=== PATIENT | female | born 1955 | race Caucasian/White ===

== ENCOUNTER 2022-08-11 04:23 | Observation (INO) | payer OTHER ==
[2022-08-11] MEDS ORDERED: NA CHLORIDE 0.9% 1,000 ML ONE (04:51)
[2022-08-11] MEDS ORDERED: NA CHLORIDE 0.9% 500 ML ONE (04:51)
--- NOTE | 2022-08-11 04:56 | ER ---
Nurse's Notes [facility] Name: Idalmis Chand Age: 67 yrs Sex: Female : 1955 Arrival Date: 08/11/2022 Time: 04:25 Bed 4 Private MD: Diagnosis: Paroxysmal atrial fibrillation;Chest pain, unspecified;Vomiting Presentation: 08/11 04:31 Chief complaint: EMS states: pt woke up with rapid heart rate. pt has hx of SVT on as6 arrival of EMS pt was in A-fib with RVR. on arrival to ER pt is in NRS. Coronavirus screen: At this time, the client does not indicate any symptoms associated with coronavirus-19. Ebola Screen: No symptoms or risks identified at this time. Initial Sepsis Screen: Does the patient meet any 2 criteria? No. Patient's initial sepsis screen is negative. Does the patient have a suspected source of infection? No. Patient's initial sepsis screen is negative. Risk Assessment: Do you want to hurt yourself or someone else? Patient reports no desire to harm self or others. Onset of symptoms was August 11, 2022. 04:31 Acuity: EVETTE 3 as6 04:31 Method Of Arrival: EMS: [facility] as6 Historical: - Allergies: 04:34 Propoxyphene HCl; as6 - Home Meds: 04:34 aspirin 81 mg Oral chew 1 tab once daily [Active]; carvedilol 6.25 mg oral tab 1 tab 2 as6 times per day [Active]; - PMHx: 04:34 Hypertension; SVT; as6 - PSHx: 04:34 Appendectomy; Tonsillectomy; Ligation of fallopian tube; Cholecystectomy; foot; as6 - Immunization history:: Client reports receiving the 2nd dose of the Covid vaccine, moderna Flu vaccine is not up to date. - Social history:: Smoking status: Patient reports the use of cigarette tobacco products, smokes one-half pack cigarettes per day. - Family history:: not pertinent. Screenin:35 [facility] ED Fall Risk Assessment (Adult) Score/Fall Risk Level 0 - 2 = Low Risk. Abuse as6 screen: Denies threats or abuse. Denies injuries from another. Nutritional screening: No deficits noted. Tuberculosis screening: No symptoms or risk factors identified. Assessment: 04:30 General: Appears in no apparent distress. Behavior is calm, cooperative. Pain: Denies as6 pain. Neuro: Level of Consciousness is awake, alert, obeys commands, Oriented to person, place, time, situation. Cardiovascular: Denies chest pain, shortness of breath, Capillary refill < 3 seconds Patient's skin is warm and dry. Rhythm is sinus rhythm. Respiratory: Respiratory effort is even, unlabored, Respiratory pattern is regular, symmetrical. 06:00 General: pt ambulating to bathroom. no complaints or concerns at this time. as6 Vital Signs: 04:31 BP 111 / 72; Pulse 69; Resp 14 S; Temp 97.9(O); Pulse Ox 100% on R/A; Weight 58.06 kg as6 (R); Height 5 ft. 3 in. (160.02 cm) (R); Pain 0/10; 05:30 BP 114 / 70; Pulse 64; Resp 16 S; Pulse Ox 96% on R/A; as6 06:30 BP 116 / 72; Pulse 65; Resp 13 S; Pulse Ox 95% on R/A; as6 04:31 Body Mass Index 22.67 (58.06 kg, 160.02 cm) as6 ED Course: 04:25 Patient arrived in ED. as6 04:25 Ryan Wyman, TREVER is Primary Nurse. as6 04:28 Sam Hawkins MD is Attending Physician. vangie 04:33 Triage completed. as6 04:35 Inserted saline lock: 20 gauge in left antecubital area, using aseptic technique. Blood pf1 collected. 04:35 Arm band placed on. as6 04:36 Bed in low position. Call light in reach. Side rails up X2. Adult w/ patient. Client as6 placed on continuous cardiac and pulse oximetry monitoring. NIBP monitoring applied. 04:41 SARS RAPID Sent. pf1 04:41 TSH Sent. pf1 04:41 Basic Metabolic Panel Sent. pf1 04:41 CBC with Diff Sent. pf1 04:41 LFT's Sent. pf1 04:41 Magnesium Sent. pf1 04:41 NT PRO-BNP Sent. pf1 04:41 PT-INR Sent. pf1 04:41 Troponin HS Sent. pf1 04:48 XRAY Chest (1 view) In Process Unspecified. EDMS 04:55 Ángel Earl MD is Hospitalizing Provider. vangie 06:38 No provider procedures requiring assistance completed. Patient admitted, IV remains in as6 place. Administered Medications: 04:54 Drug: NS 0.9% 500 ml Route: IV; Rate: bolus; Site: left antecubital; as6 06:44 Follow up: Response: No adverse reaction; IV Status: Completed infusion; IV Intake: as6 500ml 04:54 Drug: NS 0.9% 1000 ml Route: IV; Rate: 125 ml/hr; Site: left antecubital; as6 06:44 Follow up: Response: No adverse reaction; IV Status: Completed infusion; IV Intake: as6 1000ml 05:03 Drug: Lopressor (metoprolol TARTRATE)) 25 mg Route: PO; as6 06:43 Follow up: Response: No adverse reaction as6 05:03 Drug: Pepcid (famotidine) 20 mg Route: IVP; Site: left antecubital; as6 06:43 Follow up: Response: No adverse reaction as6 05:04 Drug: Aspirin Chewable Tablet 81 mg Route: PO; as6 06:43 Follow up: Response: No adverse reaction as6 05:04 Drug: Lovenox (enoxaparin) 60 mg Route: Sub-Q; Site: left lower abdomen; as6 06:43 Follow up: Response: No adverse reaction as6 Medication: 06:38 VIS not applicable for this client. as6 Intake: 06:44 IV: 1000ml; Total: 1000ml. as6 06:44 IV: 500ml; Total: 1500ml. as6 Outcome: 04:56 Decision to Hospitalize by Provider. vangie 06:38 Admitted to ER Hold. Please see [facility] for further documentation. as6 06:38 Condition: stable 06:38 Instructed on the need for admit. 18:04 Patient left the ED. jl7 Signatures: Dispatcher [employer] EDMS Sam Hawkins MD MD cha Leal, Jahala RN RN jl7 Ryan Wyman RN RN as6 Lesli chacon RN RN pf1
--- NOTE | 2022-08-11 04:56 | EDPHYS ---
Physician Documentation [facility] Name: Idalmis Chand Age: 67 yrs Sex: Female : 1955 Arrival Date: 08/11/2022 Time: 04:25 Bed 4 Private MD: REGINO Physician Sam Hawkins HPI: 08/11 04:40 This 67 yrs old Female presents to ER via EMS with complaints of vangie PALPITATIONS, 160 B/M. 04:40 The patient presents with a history of heart racing. Context: The symptoms occur at vangie rest. Onset: The symptoms/episode began/occurred just prior to arrival. Modifying factors: The symptoms are aggravated by nothing. The symptoms are alleviated by nothing. Severity of symptoms: At their worst the symptoms were mild moderate in the emergency department the symptoms are unchanged. The patient has not experienced similar symptoms in the past. Historical: - Allergies: 04:34 Propoxyphene HCl; as6 - Home Meds: 04:34 aspirin 81 mg Oral chew 1 tab once daily [Active]; carvedilol 6.25 mg oral tab 1 tab 2 as6 times per day [Active]; - PMHx: 04:34 Hypertension; SVT; as6 - PSHx: 04:34 Appendectomy; Tonsillectomy; Ligation of fallopian tube; Cholecystectomy; foot; as6 - Immunization history:: Client reports receiving the 2nd dose of the Covid vaccine, moderna Flu vaccine is not up to date. - Social history:: Smoking status: Patient reports the use of cigarette tobacco products, smokes one-half pack cigarettes per day. - Family history:: not pertinent. ROS: 04:40 Constitutional: Negative for fever, chills, and weight loss, Eyes: Negative for injury, vangie pain, redness, and discharge, ENT: Negative for injury, pain, and discharge, Neck: Negative for injury, pain, and swelling, Respiratory: Negative for shortness of breath, cough, wheezing, and pleuritic chest pain, Abdomen/GI: Negative for abdominal pain, nausea, vomiting, diarrhea, and constipation, Back: Negative for injury and pain, : Negative for injury, bleeding, discharge, and swelling, MS/Extremity: Negative for injury and deformity, Skin: Negative for injury, rash, and discoloration, Neuro: Negative for headache, weakness, numbness, tingling, and seizure, Psych: Negative for depression, anxiety, suicide ideation, homicidal ideation, and hallucinations, Allergy/Immunology: Negative for hives, rash, and allergies, Endocrine: Negative for neck swelling, polydipsia, polyuria, polyphagia, and marked weight changes, Hematologic/Lymphatic: Negative for swollen nodes, abnormal bleeding, and unusual bruising. 04:40 Cardiovascular: Positive for chest pain, palpitations. Exam: 04:40 Constitutional: This is a well developed, well nourished patient who is awake, alert, vangie and in no acute distress. Head/Face: Normocephalic, atraumatic. Eyes: Pupils equal round and reactive to light, extra-ocular motions intact. Lids and lashes normal. Conjunctiva and sclera are non-icteric and not injected. Cornea within normal limits. Periorbital areas with no swelling, redness, or edema. ENT: Nares patent. No nasal discharge, no septal abnormalities noted. Tympanic membranes are normal and external auditory canals are clear. Oropharynx with no redness, swelling, or masses, exudates, or evidence of obstruction, uvula midline. Mucous membranes moist. Neck: Trachea midline, no thyromegaly or masses palpated, and no cervical lymphadenopathy. Supple, full range of motion without nuchal rigidity, or vertebral point tenderness. No Meningismus. Chest/axilla: Normal chest wall appearance and motion. Nontender with no deformity. No lesions are appreciated. Cardiovascular: Regular rate and rhythm with a normal S1 and S2. No gallops, murmurs, or rubs. Normal PMI, no JVD. No pulse deficits. Respiratory: Lungs have equal breath sounds bilaterally, clear to auscultation and percussion. No rales, rhonchi or wheezes noted. No increased work of breathing, no retractions or nasal flaring. Abdomen/GI: Soft, non-tender, with normal bowel sounds. No distension or tympany. No guarding or rebound. No evidence of tenderness throughout. Back: No spinal tenderness. No costovertebral tenderness. Full range of motion. Skin: Warm, dry with normal turgor. Normal color with no rashes, no lesions, and no evidence of cellulitis. MS/ Extremity: Pulses equal, no cyanosis. Neurovascular intact. Full, normal range of motion. Neuro: Awake and alert, GCS 15, oriented to person, place, time, and situation. Cranial nerves II-XII grossly intact. Motor strength 5/5 in all extremities. Sensory grossly intact. Cerebellar exam normal. Normal gait. Psych: Awake, alert, with orientation to person, place and time. Behavior, mood, and affect are within normal limits. 04:40 ECG was reviewed by the Attending Physician. 04:56 Musculoskeletal/extremity: DVT Exam: No signs of deep vein thrombosis. no pain, no vangie swelling, no tenderness, negative Homans' sign noted on exam, no appreciated bluish discoloration, no erythema, no increased warmth. Vital Signs: 04:31 BP 111 / 72; Pulse 69; Resp 14 S; Temp 97.9(O); Pulse Ox 100% on R/A; Weight 58.06 kg as6 (R); Height 5 ft. 3 in. (160.02 cm) (R); Pain 0/10; 05:30 BP 114 / 70; Pulse 64; Resp 16 S; Pulse Ox 96% on R/A; as6 06:30 BP 116 / 72; Pulse 65; Resp 13 S; Pulse Ox 95% on R/A; as6 04:31 Body Mass Index 22.67 (58.06 kg, 160.02 cm) as6 MDM: 04:29 Patient medically screened. vangie 04:45 Differential diagnosis: arrythmia. Data reviewed: vital signs, nurses notes, lab test vangie result(s), EKG, radiologic studies, plain films. Consideration of Admission/Observation Patient was admitted/placed on observation. Escalation of care including admission/observation considered. I considered the following discharge prescriptions or medication management in the emergency department Medications were administered in the Emergency Department. See MAR. Test considered but Not performed: CT: CT CHEST. Care significantly affected by the following chronic conditions: Hypertension, SVT. 08/11 04:27 Order name: Basic Metabolic Panel; Complete Time: 06:12 08/11 04:27 Order name: CBC with Diff; Complete Time: 06:12 08/11 04:27 Order name: LFT's; Complete Time: 06:12 08/11 04:27 Order name: Magnesium; Complete Time: 06:12 08/11 04:27 Order name: NT PRO-BNP; Complete Time: 06:12 08/11 04:27 Order name: PT-INR; Complete Time: 06:12 la08/11 04:27 Order name: Troponin HS; Complete Time: 06:12 la08/11 04:27 Order name: XRAY Chest (1 view) la08/11 04:28 Order name: TSH; Complete Time: 06:12 la08/11 04:28 Order name: UDS la08/11 04:28 Order name: SARS RAPID; Complete Time: 06:12 vangie 08/11 06:14 Order name: Urine Dipstick-Ancillary EDMS 08/11 07:55 Order name: Troponin High Sensitivity EDMS 08/11 04:27 Order name: EKG; Complete Time: 04:29 la08/11 04:27 Order name: Cardiac monitoring; Complete Time: 04:35 la08/11 04:27 Order name: EKG - Nurse/Tech; Complete Time: 04:41 la08/11 04:27 Order name: IV Saline Lock; Complete Time: 04:35 la08/11 04:27 Order name: Labs collected and sent; Complete Time: 04:41 la08/11 04:27 Order name: O2 Per Protocol; Complete Time: 04:35 la08/11 04:27 Order name: O2 Sat Monitoring; Complete Time: 04:35 la08/11 04:28 Order name: Urine Dipstick-Ancillary (obtain specimen); Complete Time: 06:37 la08/11 05:03 Order name: CONS Physician Consult EDMS EC:40 Rate is 71 beats/min. Rhythm is regular. QRS [place] is Normal. NE interval is normal. QRS vangie interval is normal. QT interval is normal. No Q waves. T waves are Normal. No ST changes noted. Clinical impression: Normal ECG and No evidence of ischemia. Interpreted by me. Reviewed by me. Administered Medications: 04:54 Drug: NS 0.9% 500 ml Route: IV; Rate: bolus; Site: left antecubital; as6 06:44 Follow up: Response: No adverse reaction; IV Status: Completed infusion; IV Intake: as6 500ml 04:54 Drug: NS 0.9% 1000 ml Route: IV; Rate: 125 ml/hr; Site: left antecubital; as6 06:44 Follow up: Response: No adverse reaction; IV Status: Completed infusion; IV Intake: as6 1000ml 05:03 Drug: Lopressor (metoprolol TARTRATE)) 25 mg Route: PO; as6 06:43 Follow up: Response: No adverse reaction as6 05:03 Drug: Pepcid (famotidine) 20 mg Route: IVP; Site: left antecubital; as6 06:43 Follow up: Response: No adverse reaction as6 05:04 Drug: Aspirin Chewable Tablet 81 mg Route: PO; as6 06:43 Follow up: Response: No adverse reaction as6 05:04 Drug: Lovenox (enoxaparin) 60 mg Route: Sub-Q; Site: left lower abdomen; as6 06:43 Follow up: Response: No adverse reaction as6 Disposition Summary: 08/11/22 04:56 Hospitalization Ordered Hospitalization Status: Observation vangie Provider: Ángel Earl cha Condition: Fair vangie Problem: new vangie Symptoms: have improved vangie Bed/Room Type: Standard vangie Location: Telemetry/MedSurg (Inpatient)(08/11/22 17:28) sp3 Room Assignment: [facility](08/11/22 17:28) sp3 Diagnosis - Paroxysmal atrial fibrillation vangie - Chest pain, unspecified vangie - Vomiting vangie Forms: - Medication Reconciliation Form vangie - SBAR form vangie Signatures: Dispatcher [employer] EDSam Castillo MD MD cha Attema, Lee, DISTRIBUTION ACCOUNTING CLERK-C DISTRIBUTION ACCOUNTING CLERK-Cla1 Rosa Maria Jansen, RN RN Dashawn Bedoya MD MD sp3 Ryan Wyman RN RN as6 Corrections: (The following items were deleted from the chart) 06:08 04:56 Telemetry/MedSurg (observation) vangie cg 06:08 04:56 vangie cg 17:28 06:08 [facility] ER HOLD cg sp3 17:28 06:08 ERHOLD- cg sp3
[2022-08-11] MEDS ORDERED: ENOXAPARIN 60 MG/0.6 ML SQ ONE ×2 (05:02→12:18)
[2022-08-11] MEDS ORDERED: ASPIRIN 81 MG CHEWABLE TABLET ONE (05:02)
[2022-08-11] MEDS ORDERED: FAMOTIDINE 20 MG/2 ML VIAL IV ONE (05:02)
[2022-08-11] MEDS ORDERED: METOPROLOL TAR 25 MG TAB ONE (05:02)
[2022-08-11 05:07] LABS: Absolute Lymphocytes (CBC) 2.5 K/uL (0.7-4.9); Hematocrit 47.7 % (36.0-45.0); Lymphocytes % 37.5 % (15.3-44.8); MCV 93.4 fL (80-100); MPV 8.1 fL (7.6-11.3); RBC Red Blood Cell Count 5.11 M/uL (3.86-4.86)
[2022-08-11 05:08] LABS: Protime INR 0.82
[2022-08-11 05:35] LABS: SARS-CoV-2 Antigen Rapid Res Negative (Negative)
[2022-08-11] MEDS ORDERED: ACETAMINOPHEN 325 MG TABLET PO PRN (05:38)
[2022-08-11] MEDS ORDERED: ONDANSETRON 4 MG/2 ML VIAL IV PRN (05:38)
[2022-08-11] MEDS ORDERED: MORPHINE 2 MG/ML SYR IV PRN (05:38)
[2022-08-11 05:42] VITALS: BMI 22.3
[2022-08-11 05:48] LABS: ALT/SGPT 26 U/L (13-56); Albumin 4.2 g/dL (3.4-5.0); Alkaline Phosphatase 78 U/L (45-117); BUN Blood Urea Nitrogen 12 mg/dL (7-18); Bicarbonate 28 mmol/L (21-32); Bilirubin Total 0.4 mg/dL (0.2-1.0); Glomerular Filtration Rate 97 ml/min (=/>90); Glucose Level 113 mg/dL (74-106); NT PRO-BNP 38 pg/mL (<125); Sodium Level 140 mmol/L (136-145)
[2022-08-11 05:55] LABS: AST/SGOT 23 U/L (15-37); Bilirubin Direct < 0.1 mg/dL (0-0.2); Magnesium 2.4 mg/dL (1.6-2.4); Potassium 3.6 mmol/L (3.5-5.1)
[2022-08-11 06:14] LABS: Urine Blood 1+ (Negative); Urine Glucose Negative (Negative); Urine Protein Negative (Negative); Urine pH 7.5 (5.0-7.0)
[2022-08-11] MEDS ORDERED: INFLUENZA VACCINE (for 6+ mo) 0.5 ML DOSE IMVAC ONE (08:00)
[2022-08-11] MEDS ORDERED: PNEUMOCOCCAL VACCINE 0.5 ML IMVAC ONE (08:00)
[2022-08-11] MEDS ORDERED: FAMOTIDINE 20 MG/2 ML VIAL IV SCH (09:00)
[2022-08-11] MEDS: ENOXAPARIN 60 MG/0.6 ML SQ SCH ×2 (09:00→22:46)
[2022-08-11] MEDS: carvediloL 6.25 MG TAB PO SCH ×2 (09:00→21:47)
[2022-08-11] MEDS ORDERED: ASPIRIN EC 81 MG TAB PO SCH (09:00)
[2022-08-11] MEDS ORDERED: ASPIRIN EC 81 MG TAB PO ONE (09:03)
[2022-08-11] MEDS ORDERED: carvediloL 6.25 MG TAB ONE (09:03)
[2022-08-11] MEDS ORDERED: FAMOTIDINE 20 MG TAB ONE (09:03)
--- NOTE | 2022-08-11 11:56 | HP ---
Date of Admission: 08/11/2022 Chief Complaint: Palpitation and chest pain. History Of Present Illness: This is a 67-year-old very pleasant female patient, who was doing fine i n her normal usual state of health, has a history of supraventricular tachycardia and she says that s he has this palpitation from her SVT problem from time to time and it may last for just 2-3 seconds a nd has no other symptoms with it. Last night, she stayed up until midnight or so and then went to be d and in the middle of the night, she woke up with some heartburn, indigestion as she had something t o eat just before she went to sleep and heartburn, indigestion problem resolved on its own without ta robert any medications, but subsequently she started to have palpitation and she felt like her heart ra te was really fast around 160-180 and it was irregular and this was different feeling than what she g ets, but she has SVT spell and she started to have low bit chest tightness or pressure type of feelin g in the center of her chest. So, after while she requested her to call ambulance and when [facility] arrived to her house and they placed her on monitor, she was noted to have atrial fibrillation wit h rapid ventricular rate and she was brought into emergency home. As EMT was getting her out of [facility] to bring her inside the emergency room, she told the EMT that she feels like she is back to nor mal as palpitation feeling had just resolved at that time and indeed she did convert back to normal s inus rhythm on her own as she was entering emergency room. After her arrival in ER, she has remained in normal sinus rhythm and has no other symptoms. Medications: She takes carvedilol 6.25 mg 2 times a day and aspirin 81 mg daily. Allergies: TO PROPOXYPHENE. Review of Systems: Cardiovascular: As mentioned above. All other systems reviewed and negative. Past Medical History: Significant for hypertension and SVT. Past Surgical History: Appendectomy, cholecystectomy, tonsillectomy, and tubal ligation. Family History: Father , had COPD and colon cancer. Social History: Positive for smoking about half pack a day and use of alcohol. The patient reports that she has about 4 drinks a couple of times a week. Physical Examination: Vital Signs: Height 5 feet 3 inches, weight 126 pounds, oxygen saturation 96% on room air. Temperat ure , pulse , respiratory rate , blood pressure . General: Awake, alert, oriented, not in distress. HEENT: Head atraumatic, normocephalic. Conjunctivae nonerythematous. Sclerae white. Mouth, no thr ush or edema noted. Ears/Nose, no mass, lesion, discharge noted. Neck: Supple. No JVD, lymph nodes, bruit, thyromegaly noted. Lungs: Bilateral good equal air entry. Clear to auscultation. No rhonchi. No rales. Heart: Normal heart sounds, no murmur or gallop. Abdomen: Soft, bowel sounds normal. No guarding, rigidity, tenderness, mass, hepatosplenomegaly, dis tention, or bruit noted. Extremities: No leg edema. No calf tenderness. Skin: No rash, ulcer, cellulitis. Lymphatics: No lymph node enlargement in neck, supraclavicular, infraclavicular region. Neuro: No focal neurological deficit. Chest: Unremarkable. External Genitalia: Deferred. Rectal: Deferred. Laboratory Data: WBC 6.8, hemoglobin 16.4, platelets 293. Sodium 140, potassium 3.6, chloride 103, bicarb 28, BUN 12, creatinine 0.64, glucose 113. Liver function tests unremarkable. Troponin 11 on the first set, second set 21.6. TSH 3.390. Magnesium 2.4. COVID-19 test negative. Urinalysis, 1+ blood, otherwise negative. Rhythm strip was brought by EMS reviewed. Rhythm strip does show atrial fibrillation with rapid ventricular rate. Impression: 1.Atrial fibrillation with rapid ventricular rate. 2.Smoking. 3.Microscopic hematuria. Plan: We will go ahead and admit the patient to hospital for further evaluation and management of th is problem. The patient will be admitted to telemetry. We will consult Cardiology, get echo with Do ppler today. The patient will be started on Lovenox. We will continue carvedilol and I did talk to her regarding the importance to quit smoking and to avoid alcohol use and she understands that very w ell. I did talk to her regarding staying on oral anticoagulation upon discharge from the hospital an d we also talked about importance of taking appropriate precautions to avoid any kind of injury as sh e will be at increased risk of bleeding complications. DEVAN/MODL Voice ID: [id number]
--- NOTE | 2022-08-11 14:06 | RAD REPORT ---
EXAM DESCRIPTION: Chest Single View CLINICAL HISTORY: 67 years Female new afib, palpitations COMPARISON: None FINDINGS: Lung volumes adequate. Cardiac silhouette is normal. No pneumothorax. No large pleural effusion. No focal consolidation. No acute bony finding. IMPRESSION: No acute cardiopulmonary findings. Electronically signed by: Abigail Gibbs MD 08/11/2022 4:53 AM CASHIER CLERK Due to temporary technical issues with the PACS/Fluency reporting system, reports are being signed by the in house radiologists without review as a courtesy to insure prompt reporting. The interpreting radiologist is fully responsible for the content of the report.
[2022-08-11] MEDS: FAMOTIDINE 20 MG TAB PO SCH (21:47)
[2022-08-12 05:43] LABS: Absolute Lymphocytes (CBC) 3.2 K/uL (0.7-4.9); Hematocrit 40.6 % (36.0-45.0); Lymphocytes % 44.3 % (15.3-44.8); MCV 94.6 fL (80-100); MPV 7.9 fL (7.6-11.3); RBC Red Blood Cell Count 4.29 M/uL (3.86-4.86)
[2022-08-12 06:12] LABS: Potassium 4.1 mmol/L (3.5-5.1)
[2022-08-12 08:41] VITALS: O2SAT 98
[2022-08-12] MEDS: carvediloL 6.25 MG TAB PO SCH (09:00)
[2022-08-12] MEDS: FAMOTIDINE 20 MG TAB PO SCH (09:56)
[2022-08-12] MEDS: ENOXAPARIN 60 MG/0.6 ML SQ SCH (09:56)
[2022-08-12 12:58] VITALS: BP 131/64; TEMP 97.4
--- NOTE | 2022-08-12 18:08 | CON ---
Date of Consultation: 08/11/2022 Reason For Consultation: Chest pain and palpitations. History Of Present Illness: A 67-year-old female, has history of supraventricular tachycardia. She is an active smoker, presented to the emergency room with palpitations and chest pain. Pain is retro sternal, radiates to the left upper extremity, and resolved on its own without taking any medications . Evaluated by bedside. She was in sinus rhythm and chest pain was gone. Past Medical History: As outlined above in HPI. Medications: Refer to reconciliation sheet for detailed list. Allergies: ACETAMINOPHEN AND PROPOXYPHENE. Family History: No premature coronary artery disease or cancer. Past Surgical History: Appendectomy, cholecystectomy, tonsillectomy. Social History: She is an active smoker. Does not drink, use any drugs. Review of Systems: All systems reviewed and they were negative except what mentioned in HPI. Physical Examination: Vital Signs: Reviewed. Head and Neck: Pupils are equal, reactive to light. Intact eye movements. No JVD. No cervical lym phadenopathy. Neck is supple. Thyroid is not enlarged. Lungs: Clear to auscultation bilaterally. No rhonchi, wheezing, or crackles. No accessory muscle u se. Heart: Regular rate and rhythm. No extra sounds. Abdomen: Soft, nontender. Bowel sounds positive. No organomegaly. No masses or hernia. No rigidi ty or rebound. Extremities: No edema, clubbing, or cyanosis. Intact pulses. Skin: No rash. Neurologic: Alert, awake, oriented x3. No acute focal deficits appreciated. Investigations: Cardiac enzymes x2 are negative. BUN is 12, creatinine 0.64. Assessment And Recommendations: 1.Chest pain, risk factors being her age and smoking history. Recommend observation, rule out with serial sets of cardiac enzymes and if enzymes are negative, then we will plan for outpatient stress t est and echocardiogram. 2.Active smoker. The patient was counseled. SR/MODL Voice ID: [id number] Report ID: [id number]
--- NOTE | 2022-08-12 18:53 | PN ---
Date of Progress Note: 08/12/2022 Subjective: Seen by bedside. No further chest pain. Rested well overnight. Her cardiac enzymes ar e negative. Review of Systems: No chest pain, shortness of breath, orthopnea, cough, nausea, vomiting, or diarrhea. All other syste ms reviewed and they were negative. Physical Examination: Vital Signs: Reviewed. Head And Neck: Pupils are equal and reactive to light. Intact eye movements. No JVD. No cervical lymphadenopathy. Neck is supple. Thyroid is not enlarged. Lungs: Clear to auscultation bilaterally. No rhonchi, wheezing, or crackles. No accessory muscle u se. Heart: Regular rate and rhythm. No extra sounds. Abdomen: Soft, nontender. Bowel sounds positive. No organomegaly. No masses or hernia. No rigidi ty or rebound. Extremities: No edema, clubbing, or cyanosis. Intact pulses. Skin: No rash. Neurologic: Alert, awake, and oriented x3. No acute focal deficits appreciated. Lymph Nodes: No cervical or axillary lymphadenopathy. Investigations: Labs were reviewed. Assessment/recommendation: 1.Chest pain. Cardiac enzymes are negative. Has multiple risk factors. The patient can be dischar ged from Cardiology standpoint and we will obtain echo and stress test as an outpatient. I advised h er to take baby aspirin 81 mg daily until the stress test is done. 2.Active smoker. She was counseled against smoking. SR/MODL Voice ID: [id number] Report ID: [id number]
--- NOTE | 2022-08-12 22:08 | DS ---
Date of Discharge: 08/12/2022 Disposition: Discharged to go home. Physical Examination: HEENT: Unremarkable. Lungs: Clear to auscultation. Heart: Sounds normal. Abdomen: Soft. Bowel sounds normal. No guarding, rigidity, tenderness, or distention. Extremities: No leg edema. Laboratory Data: Today white count 7.1, hemoglobin 13.8, and platelet count 252. Sodium 138, potass ium 4.1, chloride 105, bicarb 29, BUN 14, creatinine 0.65, and glucose 113. Cardiac enzymes remain n egative x2. Hospital Course: This is a 67-year-old very pleasant female patient who came into emergency room wit h complaints of chest pain and palpitations. Please see dictated H and P for more information. Afte r the patient was evaluated in the emergency room, she was admitted to the hospital. When EMS arrive d at her house, as soon as she was placed on the monitor, she was noted to have atrial fibrillation w ith rapid ventricular rate and as she was entering the emergency room, her atrial fibrillation proble m resolved spontaneously without any medication given by EMS and she was in sinus rhythm. She has re mained in sinus rhythm throughout the hospital stay. After she was evaluated in the ER, she was admi tted to the hospital. Cardiology consultation was requested. Her UT was ruled out by getting serial cardiac enzymes. Echocardiogram was done today, result pending and the patient was discharged to go home in stable condition. Associate Brand Manager has released her to go home and has recommended outpatient s tress test for her. The patient informed me that she actually already has a scheduled appointment to see mandarin speaking nanny in [place], which is coming up in 2 weeks and she is going to keep that appointment as she tells me and she will get stress testing done with the mandarin speaking nanny in [place], but we will p rovide her with a copy of echocardiogram to take it with her. A copy of the rhythm strip from EMS sh owing atrial fibrillation was given to the patient and she was advised to take this to mandarin speaking nanny. During this hospitalization, the patient was given Lovenox injection and upon discharge, she will go home with Eliquis. The patient was made aware of the risk of bleeding complications with Eliquis an d she was advised to take appropriate precautions and if she has any bleeding problem, then the patie nt is to report to emergency room right away. Discharge Medications And Instructions: 1.Continue carvedilol 6.25 mg 2 times a day. 2.Stop aspirin. 3.Start Eliquis 5 mg 2 times a day and prescription was sent to her pharmacy. 4.Follow up at my office next week. Final Diagnoses: 1.Paroxysmal atrial fibrillation. 2.Hypertension. 3.Supraventricular tachycardia. 4.Smoking. 5.Microscopic hematuria. DEVAN/MODL Voice ID: [id number] Report ID: [id number]
--- NOTE | 2022-08-13 06:57 | ECHO ---
HEIGHT: 5 ft 3 in WEIGHT: 126 lb 0 oz DATE OF STUDY: 08/12/[address]: Sam Hawkins MD 2-DIMENSIONAL: YES M.MODE: YES DOPPLER: NO COLOR FLOW: NO TDS: PORTABLE: DEFINITY: BUBBLE STUDY: DIAGNOSIS: ATRIAL FIBRILLATION CARDIAC HISTORY: CATHERIZATION: SURGERY: PROSTHETIC VALVE: PACEMAKER: MEASUREMENTS (cm) DIASTOLIC (NORMALS) SYSTOLIC (NORMALS) IVSd 1.0 (0.6-1.2) LA Diam 3.1 (1.9-4.0) LVEF 78% LVIDd 4.5 (3.5-5.7) LVIDs 2.4 (2.0-3.5) %FS 46% LVPWd 1.0 (0.6-1.2) Ao Diam 2.6 (2.0-3.7) 2 DIMENSIONAL ASSESSMENT: RIGHT ATRIUM: NORMAL LEFT ATRIUM: NORMAL RIGHT VENTRICLE: NORMAL LEFT VENTRICLE: NORMAL TRICUSPID VALVE: NORMAL MITRAL VALVE: NORMAL PULMONIC VALVE: NORMAL AORTIC VALVE: NORMAL PERICARDIAL EFFUSION: NONE AORTIC ROOT: NORMAL LEFT VENTRICULAR WALL MOTION: NORMAL DOPPLER/COLOR FLOW: NOT DONE COMMENTS: 1. NORMAL LEFT VENTRICULAR EJECTION FRACTION 60-65% 2. NORMAL WALL MOTION 3. NO DOPPLER WAS DONE TO EVALUATE VALVULAR DISEASE TECHNOLOGIST: KENIA TAYLOR
== END 2022-08-12 14:45 | disposition home or self-care (01) ==
LOC: ER 04:23 → ERHOLD 04:58 → 2ND 17:41
PROVIDERS: ADMIT Internal Medicine; ATTEND Internal Medicine
DX: I48.0 Paroxysmal atrial fibrillation (principal); I47.1 Supraventricular tachycardia; R00.2 Palpitations; R31.29 Other microscopic hematuria; F17.210 Nicotine dependence, cigarettes, uncomplicated; I10 Essential (primary) hypertension; Z20.822 Contact with and (suspected) exposure to COVID-19; Z23 Encounter for immunization
CPT/HCPCS: 96361; 93307; 93005; 85025 ×2; 80048 ×2; 36415 ×2; 83735; 85610; 80076; 84443; 81003; 84484 ×2; 83880; 71045; 96372; 96374; 99285; 87811; J1650 ×4; J7040; J7030; G0378

== ENCOUNTER 2022-10-30 10:52 | Emergency (ER) | payer OTHER ==
[2022-10-30 11:55] LABS: Absolute Lymphocytes (CBC) 2.2 K/uL (0.7-4.9); Hematocrit 43.9 % (36.0-45.0); Lymphocytes % 30.8 % (15.3-44.8); MPV 8.3 fL (7.6-11.3); RBC Red Blood Cell Count 4.71 M/uL (3.86-4.86)
--- NOTE | 2022-10-30 11:56 | RAD REPORT ---
EXAM DESCRIPTION: RAD - Chest Single View - 10/30/2022 11:44 am CLINICAL HISTORY: CHEST PAIN Chest pain. COMPARISON: Chest Single View dated 08/11/2022; CHEST SINGLE VIEW dated 10/21/2013; CHEST SINGLE VIEW d ated 09/03/2013; CHEST PA AND LAT 2 VIEW dated 07/31/2011 FINDINGS: Portable technique limits examination quality. The lungs are grossly clear. The heart is normal in size. No displaced fractures. IMPRESSION: No acute intrathoracic process suspected.
[2022-10-30 12:22] LABS: ALT/SGPT 24 U/L (13-56); AST/SGOT 15 U/L (15-37); Albumin 4.2 g/dL (3.4-5.0); Alkaline Phosphatase 82 U/L (45-117); BUN Blood Urea Nitrogen 12 mg/dL (7-18); Bicarbonate 26 mEq/L (21-32); Bilirubin Total 0.4 mg/dL (0.2-1.0); Glomerular Filtration Rate 98 ml/min (=/>90); Glucose Level 107 mg/dL (74-106); Magnesium 2.2 mg/dL (1.6-2.4); NT PRO-BNP 135 pg/mL (<125); Potassium 4.1 mEq/L (3.5-5.1); Protein, Total 7.7 g/dL (6.4-8.2); Sodium Level 135 mEq/L (136-145); Troponin High Sensitivity 5.7 pg/mL (<58.9)
[2022-10-30 12:26] LABS: Bilirubin Direct < 0.1 mg/dL (0-0.2)
--- NOTE | 2022-10-30 12:36 | ER ---
Nurse's Notes [facility] Name: Juma Chand Age: 67 yrs Sex: Female : 1955 Arrival Date: 10/30/2022 Time: 10:52 Bed 8 Private MD: Glynn Earl Diagnosis: Palpitations Presentation: 10/30 10:56 Chief complaint: Patient states: Int. Palpitations for 2 days. + anxious . Diagnosed ll1 with A fib recently. Coronavirus screen: Client denies travel out of the [place] in the last 14 days. At this time, the client does not indicate any symptoms associated with coronavirus-19. Ebola Screen: Patient denies travel to an Ebola-affected area in the 21 days before illness onset. Initial Sepsis Screen: Does the patient meet any 2 criteria? No. Patient's initial sepsis screen is negative. Does the patient have a suspected source of infection? No. Patient's initial sepsis screen is negative. Risk Assessment: Do you want to hurt yourself or someone else? Patient reports no desire to harm self or others. Onset of symptoms was October 29, 2022. 10:56 Method Of Arrival: Ambulatory ll1 10:56 Acuity: EVETTE 3 ll1 Triage Assessment: 10:58 General: Appears uncomfortable, Behavior is calm, cooperative, appropriate for age. ll1 Pain: Denies pain. Cardiovascular: Reports fatigue, palpitations. Historical: - Allergies: 10:56 Propoxyphene HCl; ss - PMHx: 10:56 Hypertension; SVT; ss 10:57 Atrial fibrillation; ll1 - PSHx: 10:56 Appendectomy; Cholecystectomy; foot; Ligation of fallopian tube; Tonsillectomy; ss - Immunization history:: Adult Immunizations up to date. - Social history:: Smoking status: Patient denies any tobacco usage or history of. Screenin:01 [facility] ED Fall Risk Assessment (Adult) History of falling in the last 3 months, os including since admission No falls in past 3 months (0 pts) Confusion or Disorientation No (0 pts) Intoxicated or Sedated No (0 pts) Impaired Gait No (0 pts) Mobility Assist Device Used No (0 pt) Altered Elimination No (0 pt) Score/Fall Risk Level 0 - 2 = Low Risk. Abuse screen: Denies threats or abuse. Nutritional screening: No deficits noted. Tuberculosis screening: No symptoms or risk factors identified. Assessment: 12:04 General: Appears in no apparent distress. Behavior is calm, cooperative, anxious, os Smells of Reports Denies. Pain: Denies pain. Neuro: No deficits noted. Cardiovascular: Reports palpitations, since Patient states that she has been feeling palpitations since last night. Respiratory: No deficits noted. Vital Signs: 10:59 BP 163 / 96; Pulse 58; Resp 17; Temp 98.1; Pulse Ox 100% ; Weight 58.97 kg; Height 5 ll1 ft. 2 in. ; Pain 0/10; 12:02 BP 154 / 91; Pulse 54; Resp 17; Temp 98.2; Pulse Ox 98% on R/A; os 13:07 BP 145 / 77; Pulse 61; Resp 18; Pulse Ox 100% ; mb9 10:59 Body Mass Index 23.78 (58.97 kg, 157.48 cm) ll1 10:59 Pain Scale: Adult ll1 Vitals: 12:04 Cardiac Rhythm Assessment Regular Sinus mary lou. os Karen Coma Score: 12:04 Eye Response: spontaneous(4). Motor Response: obeys commands(6). Verbal Response: os oriented(5). Total: 15. ED Course: 10:53 Patient arrived in ED. rg4 10:54 Glynn Earl MD is Private Physician. rg4 10:56 Cece Robb FNP-C is [facility]. kb 10:56 Jg Sanders DO is Attending Physician. kb 10:57 Triage completed. ll1 10:58 Arm band placed on Patient placed in an exam room, on a stretcher. ll1 11:06 Artis Rene, RN is Primary Nurse. os 11:46 XRAY Chest (1 view) In Process Unspecified. EDMS 11:47 Basic Metabolic Panel Sent. os 11:47 CBC with Diff Sent. os 11:47 D-Dimer Sent. os 11:47 LFT's Sent. os 11:47 Magnesium Sent. os 11:47 NT PRO-BNP Sent. os 11:47 Troponin HS Sent. os 12:01 Patient has correct armband on for positive identification. Bed in low position. Call os light in reach. Side rails up X 1. Side rails up X2. Adult w/ patient. Client placed on continuous cardiac and pulse oximetry monitoring. NIBP monitoring applied. monitoring coordinator on. Pulse ox on. NIBP on. 12:01 No provider procedures requiring assistance completed. Inserted saline lock: 20 gauge os in left forearm, using aseptic technique. Blood collected. 13:08 IV discontinued, intact, bleeding controlled, No redness/swelling at site. Pressure mb9 dressing applied. Administered Medications: No medications were administered Medication: 12:04 VIS not applicable for this client. os Outcome: 12:36 Discharge ordered by MD. fischer 13:08 Discharged to home ambulatory. moon 13:08 Condition: stable 13:08 Discharge instructions given to patient, Instructed on discharge instructions, follow up and referral plans. Demonstrated understanding of instructions, follow-up care. 13:08 Patient left the ED. [email or web address] Signatures: Dispatcher [employer] EDMS Cece Robb, RESEARCH STAFF MEMBER-C RESEARCH STAFF MEMBER-CkRadha Yousif RN RN Ute Magallanes4 Severino Rwoan RN RN [email or web address] Vanessa Ybarra, RN RN mb9 Artis Rene RN RN os
--- NOTE | 2022-10-30 12:36 | EDPHYS ---
Physician Documentation [facility] Name: Juma Chand Age: 67 yrs Sex: Female : 1955 Arrival Date: 10/30/2022 Time: 10:52 Bed 8 Private MD: Glynn Earl ED Physician Jg Sanders HPI: 10/30 12:59 This 67 yrs old Female presents to ER via Ambulatory with complaints of Abnormal kb Heartbeat. 12:59 The patient presents with a history of irregular heart beat. Context: The symptoms kb occur with stress. Onset: The symptoms/episode began/occurred yesterday. Duration: The patient or guardian reports multiple episodes. Modifying factors: The symptoms are aggravated by nothing. The symptoms are alleviated by nothing. Associated signs and symptoms: The patient has no apparent associated signs or symptoms. Severity of symptoms: At their worst the symptoms were moderate in the emergency department the symptoms are unchanged. The patient has not experienced similar symptoms in the past. The patient has not recently seen a physician. Pt reports she has had an intermittent irregular heart beat since yesterday. States she just found out her needs a CABG and it could happen as soon as tomorrow so this could be related to anxiety, but she wanted to double check. Historical: - Allergies: 10:56 Propoxyphene HCl; ss - PMHx: 10:56 Hypertension; SVT; ss 10:57 Atrial fibrillation; ll1 - PSHx: 10:56 Appendectomy; Cholecystectomy; foot; Ligation of fallopian tube; Tonsillectomy; ss - Immunization history:: Adult Immunizations up to date. - Social history:: Smoking status: Patient denies any tobacco usage or history of. ROS: 12:06 Constitutional: Negative for fever, chills, and weight loss. kb 12:06 Cardiovascular: Positive for palpitations, Negative for chest pain. 12:06 All other systems are negative. Exam: 12:06 Constitutional: This is a well developed, well nourished patient who is awake, alert, kb and in no acute distress. Head/Face: Normocephalic, atraumatic. ENT: Moist Mucous membranes Cardiovascular: Regular rate and rhythm with a normal S1 and S2. No gallops, murmurs, or rubs. No pulse deficits. Respiratory: Respirations even and unlabored. No increased work of breathing. Talking in full sentences Abdomen/GI: Soft, non-tender. No distention Skin: Warm, dry with normal turgor. Normal color. MS/ Extremity: Pulses equal, no cyanosis. Neurovascular intact. Full, normal range of motion. Neuro: Awake and alert, GCS 15, oriented to person, place, time, and situation. Moves all extremities. Normal gait. 12:06 ECG was reviewed by the Attending Physician. Vital Signs: 10:59 BP 163 / 96; Pulse 58; Resp 17; Temp 98.1; Pulse Ox 100% ; Weight 58.97 kg; Height 5 ll1 ft. 2 in. ; Pain 0/10; 12:02 BP 154 / 91; Pulse 54; Resp 17; Temp 98.2; Pulse Ox 98% on R/A; os 13:07 BP 145 / 77; Pulse 61; Resp 18; Pulse Ox 100% ; mb9 10:59 Body Mass Index 23.78 (58.97 kg, 157.48 cm) ll1 10:59 Pain Scale: Adult ll1 [place] Coma Score: 12:04 Eye Response: spontaneous(4). Motor Response: obeys commands(6). Verbal Response: os oriented(5). Total: 15. MDM: 10:56 Patient medically screened. kb 12:35 Data reviewed: vital signs, nurses notes. kb 13:00 Differential diagnosis: arrythmia, dehydration, stress disorder. Consideration of kb Admission/Observation admission considered, but pt is feeling ok and wants to go home. Counseling: I had a detailed discussion with the patient and/or guardian regarding: the historical points, exam findings, and any diagnostic results supporting the discharge/admit diagnosis, lab results, radiology results, the need for outpatient follow up, a family practitioner, to return to the emergency department if symptoms worsen or persist or if there are any questions or concerns that arise at home. 10/30 10:59 Order name: Basic Metabolic Panel; Complete Time: 12:43 kb 10/30 10:59 Order name: CBC with Diff; Complete Time: 12:01 kb 10/30 10:59 Order name: D-Dimer; Complete Time: 12:04 kb 10/30 10:59 Order name: LFT's; Complete Time: 12:43 kb 10/30 10:59 Order name: Magnesium; Complete Time: 12:43 kb 10/30 10:59 Order name: NT PRO-BNP; Complete Time: 12:43 kb 10/30 10:59 Order name: Troponin HS; Complete Time: 12:43 kb 10/30 10:59 Order name: TSH; Complete Time: 12:43 kb 10/30 12:28 Order name: T4 Free; Complete Time: 12:43 EDMS 10/30 10:59 Order name: XRAY Chest (1 view); Complete Time: 12:01 kb 10/30 10:59 Order name: EKG; Complete Time: 11:00 kb 10/30 10:59 Order name: Cardiac monitoring; Complete Time: 11:32 kb 10/30 10:59 Order name: EKG - Nurse/Tech; Complete Time: 11:47 kb 10/30 10:59 Order name: IV Saline Lock; Complete Time: 11:47 kb 10/30 10:59 Order name: Labs collected and sent; Complete Time: 11:47 kb 10/30 10:59 Order name: O2 Per Protocol; Complete Time: 11:32 kb 10/30 10:59 Order name: O2 Sat Monitoring; Complete Time: 11:32 kb EC:06 Rate is 52 beats/min. Rhythm is regular. QRS [place] is Normal. CA interval is prolonged kb at 202 msec. QRS interval is normal at 74 msec. QT interval is normal at 403 msec. Administered Medications: No medications were administered Disposition: 19:04 Co-signature as Attending Physician, Jg Sanders DO Jhaveri was immediately available on-site ms3 in the Emergency Department for consultation in the care of the patient. Disposition Summary: 10/30/22 12:36 Discharge Ordered Location: Home kb Condition: Stable kb Diagnosis - Palpitations kb Followup: kb - With: Emergency Department - When: As needed - Reason: Worsening of condition Followup: kb - With: Private Physician - When: 2 - 3 days - Reason: Recheck today's complaints, Continuance of care, Re-evaluation by your physician Discharge Instructions: - Discharge Summary Sheet kb - Palpitations, [id number] kb Forms: - Medication Reconciliation Form kb - Thank You Letter kb - Antibiotic Education kb - Prescription Opioid Use kb Signatures: Dispatcher [employer] EDCA Cezar, Cece, HTML DEVELOPER-C HTML DEVELOPER-Ckb Smirch, Radha, RN RN ss Harpal, Lynsay, RN RN ll1 Sanders, Jg, DO DO ms3
[2022-10-30 13:19] VITALS: TEMP 98.2
[2022-10-30 13:21] VITALS: BP 145/77; O2SAT 100
--- NOTE | 2022-10-31 07:02 | EKG ---
Test Date: 2022-10-30 Test Time: 11:13:06 Relocation Director: OS MEASUREMENT RESULTS: Intervals: Rate: 52 NH: 202 QRSD: 74 QT: 434 QTc: 403 [place]well: P: 46 NH: 202 QRS: 65 T: 53 INTERPRETIVE STATEMENTS: Sinus bradycardia Otherwise normal ECG Compared to ECG 08/11/2022 04:41:08 Sinus rhythm no longer present Electronically Signed On 10-31-22 06:59:57 CDT by Jeevan Elliott
== END 2022-10-30 13:08 | disposition home or self-care (01) ==
LOC: ER 10:52
DX: R00.2 Palpitations (principal); I10 Essential (primary) hypertension; I48.91 Unspecified atrial fibrillation; Z88.8 Allergy status to other drugs, medicaments and biological substances
CPT/HCPCS: 36415; 71045; 80048; 80076; 83735; 83880; 84439; 84443; 84484; 85025; 85379; 93005